=== PATIENT | female | born 1970 | race Caucasian/White ===

== ENCOUNTER 2022-09-17 04:28 | Inpatient (IN) | payer MEDICAID ==
[~2022-09-17] VITALS: Ht 172.7 cm; Wt 68.0 kg
[2022-09-17 04:30] VITALS: BP 122/78
--- NOTE | 2022-09-17 04:33 | NUR ---
BIBA TO BED #11
--- NOTE | 2022-09-17 04:35 | NUR ---
BIBYousif FROM STREET, PT IS HOMELESS, WITH C/O ABDOMINAL PAIN & H/A X 2 HOURS. EN ROUTE TO HOSPITAL PT EXPERIENCED AN EPISODE OF DIARRHEA, WAS INCONTINENT. PMH : ASTHMA
--- NOTE | 2022-09-17 04:39 | NUR ---
DR RONQUILLO AT BEDSIDE FOR EXAM
[2022-09-17] MEDS ORDERED: NACL 0.9% 2,000 ML IV ONE (04:55)
[2022-09-17] MEDS ORDERED: KETOROLAC 30 MG/ML VIAL IVP ONE (04:55)
--- NOTE | 2022-09-17 05:57 | NUR ---
20G IV CATH PLACE [facility] / COVID SWAB COLLECTED AND SENT TO LAB
[2022-09-17 06:18] LABS: BASOPHILS % (AUTO) 0.4 % (0.0-2.0); EOSINOPHILS # (AUTO) 0.3 K/uL (0-0.4); EOSINOPHILS % (AUTO) 6.1 % (0.0-4.0); HEMATOCRIT 45.9 % (36-48); HEMOGLOBIN 15.4 g/dL (12.0-16.0); LYMPHOCYTES # (AUTO) 0.8 K/uL (2.5-16.5); LYMPHOCYTES % (AUTO) 19.3 % (20.5-51.1); MEAN CORPUSCULAR HEMOGLOBIN 30 pg (27-31); MEAN CORPUSCULAR HGB CONC 34 g/dL (33-37); MEAN CORPUSCULAR VOLUME 87.9 fL (80-94); MONOCYTES # (AUTO) 0.2 K/uL (0.8-1.0); MONOCYTES % (AUTO) 5.7 % (1.7-9.3); NEUTROPHILS % (AUTO) 68.5 % (42.2-75.2); PLATELET COUNT (AUTO) 186 K/uL (140-450); RED BLOOD CELL COUNT(AUTO) 5.22 MIL/uL (4.20-5.40); RED CELL DISTRIBUTION WIDTH 15.9 % (11.6-13.7); WHITE BLOOD COUNT (AUTO) 4.3 K/uL (4.8-10.8)
--- NOTE | 2022-09-17 07:01 | NUR ---
MED RECONCILE AND BELONGINGS LIST DONE
--- NOTE | 2022-09-17 07:05 | NUR ---
PT TO CT
--- NOTE | 2022-09-17 07:16 | NUR ---
returned from radiology
[2022-09-17 07:26] LABS: ANION GAP 17.4 (8-16); CARBON DIOXIDE 26.8 mmol/L (21-32); CREATININE 0.7 mg/dL (0.6-1.3); POTASSIUM 3.2 mmol/L (3.5-5.1)
[2022-09-17 07:27] LABS: TOTAL BILIRUBIN 0.3 mg/dL (0.0-1.0)
[2022-09-17 07:28] LABS: ALBUMIN 4.5 g/dL (3.4-5.0)
[2022-09-17] MEDS ORDERED: DEXT 5% / NACL 0.9% 500 ML IV ONE ×2 (08:00→08:15)
--- NOTE | 2022-09-17 08:11 | NUR ---
asleep in bed, denies pain or discomfort
--- NOTE | 2022-09-17 09:12 | NUR ---
NO FURTHER DIARRHEA EPISODES THIS AM. ASLEEP, EASILY AROUSABLE. DENIES URGE TO VOID URINE AT THIS TIME.
[2022-09-17] MEDS ORDERED: HYDROcodone/APAP 7.5/325 MG 1 TAB PO PRN (09:50)
[2022-09-17] MEDS ORDERED: ACETAMINOPHEN 325 MG TAB PO PRN (09:50)
[2022-09-17] MEDS ORDERED: ZOLPIDEM 5 MG TAB PO PRN (09:50)
[2022-09-17] MEDS ORDERED: POTASSIUM CHLORIDE 10 MEQ TABER PO PRN (09:50)
[2022-09-17] MEDS ORDERED: guaiFENesin DM 200/20 MG-10 ML 10 ML UDC PO PRN (09:50)
[2022-09-17] MEDS ORDERED: ONDANSETRON 4 MG/2 ML VIAL IM/IVP PRN (09:50)
[2022-09-17] MEDS ORDERED: DOCUSATE SODIUM 100 MG GELCAP PO PRN (09:50)
[2022-09-17] MEDS: DEXT 5% /NACL 0.9% 1,000 ML IV SCH ×2 (09:50→17:50)
--- NOTE | 2022-09-17 09:57 | NUR ---
Patient will be admitted to care of DR HIGHTOWER. Admited to MED SURG. Will go to room 106A. Belongings list completed. Report to KATE KILGORE.
[2022-09-17 10:00] VITALS: BP 101/51
--- NOTE | 2022-09-17 10:00 | NUR ---
AROUND 1000, PATIENT TRANSFER TO [facility] FROM ER FOR ABDOMINAL PAIN W/ WATER DIARRHEA X 1 DAY & 1 EPISODE OF VOMITING. PATIENT DIAGNOSIS W/ ABDOMEN PAIN, DEHYDRATING, & VIRAL GASTROENTERITIS. PATIENT'S ONLY MEDICAL HX IS ASTHMA, AND X2. PATIENT HAS NKA, FULL CODE, ABLE TO AMBULATORY; ALERT X 3 ON ROOM AIR; ADMITTING TO MED/SUG FLOOR UNDER CARE OF DR. HIGHTOWER. PATIENT IS NPO EXCEPT MEDS, BUT START EATING APPLY AFTER ARRIVE THAT FLOOR DESPITE NURSE INFORM PATIENT THAT SHE IS NOT SUPPOSE TO EAT AT THAT TIME. PIV AT LAC 22G INFUSING D5NS @125ML/HR. VITAL WITHIN PATIENT'S BASELINE (T-P-R: 96.4-70-18, BP: 101/51, O2 SAT: 92% ON RA). WILL CONTINUE TO MONITOR
[2022-09-17 16:00] VITALS: BP 104/58
--- NOTE | 2022-09-17 16:56 | NUR ---
AFTER LUNCH, AROUND 1300, PATIENT ACCUSE THAT NURSE WHO CUSTOMS OFFICER LUNCH TRAY, DID NOT PROVIDE LUNCH FOR HER. PER RN WHO PASS TRAY THAT PATIENT DID ATE SOME OF THE LUNCH. THEN AROUND 1600, PATIENT INFORM NURSE THAT SHE DOES NOT NOT WANT CONNECT TO IV HYDRATION LINE BECAUSE IT RESTRAINT HER ACTIVITY. AFTER NURSE DISCONNECT PATIENT FROM IV, PATIENT WENT OUT HER ROOM AND TRYING TO FINDING STAFF [place] TO USE VENDING MACHINE FOR SODA AND SNACK. WHEN NURSE AND OTHER STAFF FOLLOWING PATIENT, SHE SHOUT TO NURSE THAT SHE HAS NO PEEL AT MIKE TIME BECAUSE NURSE DIS ASKING IF PATIENT WOULD BE ABLE TO GIVE URINE FOR DRUG SCREEN. WILL CONTINUE TO MONITOR
--- NOTE | 2022-09-17 19:36 | NUR ---
ENDORSE PATIENT TO PM SHIFT NURSE WHILE PATIENT REFUSE HAVING IV CONNECTED BECAUSE IV RESTRAINT PATIENT'S ACTIVITY.
--- NOTE | 2022-09-17 19:37 | NUR ---
RECEIVED PT FROM DAY SHIFT NURSE FOR CONTINUITY OF CARE. PT IS AWAKE, ALERT AND VERBALLY RESPONSIVE. PT IS AMBULATORY AND INDEPENDENT. IV SITE IS ON LAC 22G AT 125ML/HR, INTACT AND PATENT.
--- NOTE | 2022-09-17 20:15 | NUR ---
PT REFUSED IV TO BE CONNECTED AT THIS TIME.
[2022-09-17 20:56] VITALS: BP 114/49
--- NOTE | 2022-09-17 21:00 | NUR ---
PT REQUESTED TO CONNECT IV LINE LATER, SHE WANTS TO CLEAN HERSELF FIRST.
--- NOTE | 2022-09-17 22:00 | NUR ---
PT REFUSED TO HAVE IV FLUID CONNECTED. EXPLAINED RISKS & BENEFITS. PT IS STILL REFUSED IV FLUID.
--- NOTE | 2022-09-17 23:30 | NUR ---
PT REFUSED IV FLUID.
--- NOTE | 2022-09-17 23:50 | NUR ---
PT SCREAMING, REFUSED IV FLUIDS
--- NOTE | 2022-09-18 00:10 | NUR ---
PT SCREAMS. PT STATED COULD NOT SLEEP, "THEY DON'T LET ME SLEEP".
--- NOTE | 2022-09-18 00:30 | NUR ---
PT SCREAMING AND STATED SHE HEARS VOICES.
[2022-09-18] MEDS: DEXT 5% /NACL 0.9% 1,000 ML IV SCH ×2 (01:50→09:50)
--- NOTE | 2022-09-18 02:00 | NUR ---
PT IS SLEEPING.
--- NOTE | 2022-09-18 04:00 | NUR ---
PT REFUSE IV FLUID TO BE CONNECTED TO IV LINE. PT ALSO REFUSE BLOOD WITHDRAWN FOR LAB. EXPLAIN RISKS & BENEFITS, PT STILL REFUSE.
--- NOTE | 2022-09-18 04:30 | NUR ---
PT REFUSED VITAL SIGNS CHECK, EXPLAINED RISKS AND BENEFITS, PT FINALLY AGREE WITH VITAL SIGNS CHECK.
[2022-09-18 04:56] VITALS: BP 105/51
--- NOTE | 2022-09-18 07:30 | NUR ---
RECEIVED PT FROM CENTERLESS GRINDER SET UP OPERATOR NURSE FOR CONTINUITY OF CARE. PT IN BED SLEEPING. VISIBLE CHEST RISE/FALL. RESPIRATIONS EVEN AND UNLABORED ON RA. NO DISTRESS NOTED. IV ON L A/C 22G. IV FLUIDS DISCONNECTED. PER CENTERLESS GRINDER SET UP OPERATOR NURSE PT REFUSING IV FLUIDS AND REFUSED MORNING LABS. ALL SAFETY PRECAUTIONS IN PLACE. CALL LIGHT WITHIN REACH.
--- NOTE | 2022-09-18 07:39 | NUR ---
PT IS ON STABLE CONDITION. ALL SAFETY MEASURES ARE IN PLACE. ENDORSED SKY SHIFT
[2022-09-18 08:00] VITALS: BP 112/58
--- NOTE | 2022-09-18 08:19 | NUR ---
WENT IN ROOM, NOTED FECES ALL OVER FLOOR. PT STATES "I SHITTED MYSELF", ASSURED PT WE WOULD CLEAN UP. CHANGED BED LINENS AND PROVIDED CLEAN GOWN. REMINDED PT I NEED A URINE AND STOOL SAMPLE. PT BEGINS TO YELL STATES " I DONT KNOW WHAT TO TELL YOU I ALREADY PEED AND I SHIT MYSELF I DONT HAVE TO ANYMORE. I DONT HAVE IT" NURSE EDUCATED PT ON THE NEED FOR SAMPLE AND REMINDED PT THAT NEXT TIME SHE NEEDS TO GO TO LET NURSE KNOW. LEFT COLLECTION CUP NEAR RESTROOM.
[2022-09-18] MEDS ORDERED: PANTOPRAZOLE 40 MG TABEC PO SCH (09:00)
--- NOTE | 2022-09-18 09:00 | NUR ---
PT EATING BREAKFAST IN ROOM. TOLD PT SHE IS DIAGNOSED WITH DEHYDRATION AND WILL BE CONNECTED TO IV TO RECEIVE FLUIDS. PT REFUSES, STATES " I AM NOT DEHYDRATED AND I AM DRINKING WATER, I DONT WANT TO BE HOOKED UP TO THAT" NURSE EDUCATED PT ON DEHYDRATION AND RISKS/BENEFITS. PT VERBALIZED UNDERSTANDING. ENCOURAGED PT TO RECEIVE IV HYDRATION. PT REFUSED.
--- NOTE | 2022-09-18 09:05 | NUR ---
PATIENT HAS BEEN SCREENED AND CATEGORIZED HIGH NUTRITION RISK. PATIENT WILL BE SEEN WITHIN 1-2 DAYS OF ADMISSION. FNS REFERRAL RECEIVED FOR DIARRHEA >3 DAYS ON 09/18/22. REVIEWED BY JULES ZHOU RD
[2022-09-18] MEDS ORDERED: DOCU-299 PO (10:51)
[2022-09-18] MEDS ORDERED: PANT40EC56 PO (10:51)
[2022-09-18] MEDS ORDERED: LACT500C2 PO (10:51)
[2022-09-18 10:56] VITALS: BP 112/58
[2022-09-18 11:11] LABS: BASOPHILS % (AUTO) 0.4 % (0.0-2.0); EOSINOPHILS # (AUTO) 0.3 K/uL (0-0.4); EOSINOPHILS % (AUTO) 9.7 % (0.0-4.0); HEMATOCRIT 36.2 % (36-48); HEMOGLOBIN 12.2 g/dL (12.0-16.0); LYMPHOCYTES # (AUTO) 1.1 K/uL (2.5-16.5); LYMPHOCYTES % (AUTO) 30.6 % (20.5-51.1); MEAN CORPUSCULAR HEMOGLOBIN 30 pg (27-31); MEAN CORPUSCULAR HGB CONC 34 g/dL (33-37); MEAN CORPUSCULAR VOLUME 87.7 fL (80-94); MONOCYTES # (AUTO) 0.1 K/uL (0.8-1.0); MONOCYTES % (AUTO) 4.2 % (1.7-9.3); NEUTROPHILS # (AUTO) 1.9 K/uL (1.8-7.7); NEUTROPHILS % (AUTO) 55.1 % (42.2-75.2); PLATELET COUNT (AUTO) 167 K/uL (140-450); RED BLOOD CELL COUNT(AUTO) 4.13 MIL/uL (4.20-5.40); RED CELL DISTRIBUTION WIDTH 15.3 % (11.6-13.7); WHITE BLOOD COUNT (AUTO) 3.5 K/uL (4.8-10.8)
[2022-09-18 11:33] LABS: PROTHROMBIN TIME 10.8 secs (10.8-13.4)
[2022-09-18 11:35] LABS: ANION GAP 10.9 (8-16); CARBON DIOXIDE 23.7 mmol/L (21-32); CREATININE 0.6 mg/dL (0.6-1.3); POTASSIUM 3.6 mmol/L (3.5-5.1)
[2022-09-18 11:54] LABS: CHOL/HDL RATIO 3.2 (1-4.5); FREE T4 (FREE THYROXINE) 0.84 ng/dL (0.76-1.46); MAGNESIUM 1.7 mg/dL (1.8-2.4); PHOSPHORUS 3.6 mg/dL (2.5-4.9); THYROID STIMULATING HORMONE 0.42 uIU/mL (0.34-3.74)
--- NOTE | 2022-09-18 12:00 | NUR ---
PT DISCHARGE PACKET DISCUSSED. IV AND NAME BAND REMOVED. RESOURCE PACKET PROVIDED. PT YELLING STATES SAYS SHE WANT A BUS PASS, INFORMED PT WE DONT HAVE BUS PASSES BUT WE CAN PROVIDE A RIDE THROUGH [employer]. PT STATES "I AM NOT LEAVING THEN I NEED A BUS PASS NOT A RIDE." PT BEGINS THROWING HER CLOTHING AND SHOES IN TRASH CAN. SECURITY CALLED. SECURITY PROVIDE PT WITH CLOTHES AND SHOES. SECURITY ESCORTED PATIENT.
[2022-09-21 15:07] LABS: T4 (THYROXINE) 10.9 ug/dL (4.5-12.0)
== END 2022-09-18 12:20 | disposition home or self-care (01) | DRG 249 ==
LOC: MED 04:28 → MTU 07:59
PROVIDERS: ADMIT Family Medicine; ATTEND Family Medicine
DX: A09 Infectious gastroenteritis and colitis, unspecified (principal); R65.11 Systemic inflammatory response syndrome (SIRS) of non-infectious origin with acute organ dysfunction; E87.20 Acidosis, unspecified; E86.0 Dehydration; E87.6 Hypokalemia; Z20.822 Contact with and (suspected) exposure to COVID-19; J45.909 Unspecified asthma, uncomplicated; Z59.00 Homelessness unspecified
CPT/HCPCS: 36415; 71045; 80048; 80053; 82150; 83036; 83605; 83690; 83735; 83880; 84100; 84436; 84439; 84443; 84479; 85025; 85610; 85730; 87040; 87081; 99285; J1885